=== PATIENT | male | born 1980 | race Caucasian/White ===

== ENCOUNTER 2021-11-02 18:46 | Emergency (ER) | payer OTHER ==
[2021-11-02 19:12] VITALS: BP 126/79
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
== END 2021-11-02 20:23 | disposition home or self-care (01) ==
LOC: ED 18:46
DX: S01.112A Laceration without foreign body of left eyelid and periocular area, initial encounter (principal); Z79.899 Other long term (current) drug therapy; Y04.8XXA Assault by other bodily force, initial encounter; Y93.89 Activity, other specified; Y92.149 Unspecified place in prison as the place of occurrence of the external cause; Y99.8 Other external cause status
CPT/HCPCS: 99282